=== PATIENT | male | born 1985 | race Two or more races ===

== ENCOUNTER 2020-11-07 19:31 | Emergency (ER) | payer OTHER ==
[~2020-11-07] VITALS: Ht 185.4 cm; Wt 91.0 kg
[2020-11-07 19:56] VITALS: BP 142/92
== END 2020-11-07 20:57 | disposition left against medical advice (07) ==
LOC: ER 19:31
DX: Z53.21 Procedure and treatment not carried out due to patient leaving prior to being seen by health care provider (principal)